=== PATIENT | female | born 1975 | race African-American/Black ===

== ENCOUNTER 2021-02-10 08:14 | Emergency (ER) | payer OTHER ==
[2021-02-10 08:26] VITALS: BP 133/82; PULSE 78; TEMP 98; BMI 31.5
== END 2021-02-10 09:18 | disposition home or self-care (01) ==
LOC: JER 08:14
DX: M54.6 Pain in thoracic spine (principal)
CPT/HCPCS: 71046-TC-FY; 99283-25

== ENCOUNTER 2021-06-03 14:43 | Emergency (ER) | payer OTHER ==
[2021-06-03 15:27] VITALS: TEMP 97.9; BMI 30.1
[2021-06-03 17:43] LABS: BASO % 0.7 % (0-2.0); EOS % 1.9 % (0-4.5); HEMATOCRIT 38.9 % (32.4-45.2); HEMOGLOBIN 12.6 GM/dL (10.7-15.3); LYMPH % 27.5 % (8-40); MCH 26.3 pg (25.7-33.7); MCHC 32.5 g/dl (32.0-36.0); MEAN CELL VOLUME 80.9 fl (80-96); MEAN PLT VOLUME 9.1 fl (7.5-11.1); MONO % 7.1 % (3.8-10.2); NEUT % 62.8 % (42.8-82.8); PLATELET COUNT 301 10^3/uL (134-434); RDW 14.9 % (11.6-15.6); WHITE BLOOD COUNT 6.8 K/mm3 (4.0-10.0)
[2021-06-03 18:06] LABS: CHLORIDE 103 mmol/L (98-107); SODIUM 138 mmol/L (136-145)
[2021-06-03 18:09] LABS: ANION GAP 9 MMOL/L (8-16); CO2 26 mmol/L (21-32); GLUCOSE,RANDOM 84 mg/dL (74-106)
[2021-06-03 18:10] LABS: MAGNESIUM 1.9 mg/dL (1.8-2.4)
[2021-06-03 18:12] LABS: CREATININE 0.9 mg/dL (0.55-1.3); SGOT/AST 22 U/L (15-37); SGPT/ALT 21 U/L (13-61)
[2021-06-03 18:14] LABS: BILIRUBIN,TOTAL 0.5 mg/dL (0.2-1); TOT PROT 8.6 g/dl (6.4-8.2)
[2021-06-03 18:15] LABS: ALK PHOS 73 U/L (45-117)
[2021-06-03] MEDS ORDERED: ACETAMINOPHEN 325 MG TABLET (FP) PO ONE (18:30)
[2021-06-03] MEDS ORDERED: ACETAMINOPHEN 325 MG TABLET (FP) ONE (19:33)
[2021-06-03 21:06] VITALS: BP 108/68; PULSE 71
== END 2021-06-03 21:09 | disposition home or self-care (01) ==
LOC: JER 14:43
DX: R07.9 Chest pain, unspecified (principal)
CPT/HCPCS: 36415; 71046-TC-FY; 80053; 83735; 84484; 84703; 85025; 87804; 93005; 93010; 93308; 99285-25; C9803-CS; U0003; U0005